=== PATIENT | male | born 1960 | race Caucasian/White ===

== ENCOUNTER → 2022-04-25 12:11 | Outpatient (CLI) | payer BC, SELFPAY ==
--- NOTE | ~2022-04-25 | MR_ITS ---
EXAMINATION: MR brain/brain stem wo/w con DATE: 04/25/2022 13:24 INDICATION: Dizziness. Headache. TECHNIQUE: Magnetic resonance imaging (MRI) of the brain and brainstem was performed without and with 15 mL MultiHance intravenous contrast. COMPARISON: None. FINDINGS: There are scattered areas of nonspecific increased T2-weighted signal intensity in the cere bral white matter, which is within normal limits for the patient's age. There is no intracranial hemo rrhage, acute infarction, or abnormal intracranial mass lesion. The ventricles are normal in size. Th e internal auditory canals and inner and middle ears are normal. There is a trace right mastoid effus ion. There is mild mucosal thickening in the paranasal sinuses. The orbits are normal. IMPRESSION: 1. Normal aging brain. Reviewed, dictated and finalized at location A. IMPRESSION: 1. Normal aging brain.
== END ==
PROVIDERS: PCP Family Medicine; Visit Provider Family Medicine
DX: R42 Dizziness and giddiness (principal); R51.9 Headache, unspecified; R20.2 Paresthesia of skin
CPT/HCPCS: 70553; A9577

== ENCOUNTER 2024-09-09 09:34 | Outpatient (CLI) | payer BC, SELFPAY ==
--- OUTSIDE RECORDS SUMMARY | 2024-09-09 09:51 | XMS_ITS | Clinical Summary ---
Author Organization [facility] Address [address] [place] [address]. [place] [address] [place] [address] Care Team Providers Care Events Associate Name Role Phone Rosalva Singer MD Primary Care Provider Allergies Active Allergy Reactions Criticality Noted Date Comments Sulfa Antibiotics Itching 10/21/2019 Medications No known medications Encounters Date Type Department Care Team Description 09/07/2024 12:30 PM CLAIM TRAINEE Telephone [facility], [address] [address] Rosalva Singer MD Holter Monitor 09/02/2024 Orders Only [facility], [address] [address] Rosalva Singer MD 09/01/2024 Telephone [facility], [address] [address] Cindi Wiley RMA Schedule Test (30d monitor) 08/29/2024 Transcribe Orders [facility] Pre Access Team [address] [place] [address] Rosalva Singer MD from Last 3 Months Immunizations Name Administration Dates Next Due MODERNA COVID-19 (12+) MRNA, LNP-S, PF, 100 MCG/ 0.5 ML DOSE 11/16/2020,10/19/2020 Family History Medical History Relation Comments Cancer Daughter Cancer Father brain Cancer Mother colon Relation Status Comments Daughter Father Mother Social History Tobacco Use Types Packs/Day Years Used Date Smoking Tobacco: Never Smokeless Tobacco: Never Alcohol Use Standard Drinks/Week Comments Never 0 (1 standard drink = 0.6 oz pur e alcohol) Humiliation, Afraid, Rape, and Kick questionnair e Answer Date Recorded Fear of Current or Ex-Partner Patient declined 0 12/15/2019 Emotionally Abused Patient declined 12/15/2019 Physically Abused Patient declined 12/15/2019 Sexually Abused Patient declined 12/15/2019 Social Connection and Isolation Panel [NHANES] A nswer Date Recorded Frequency of Communication with Friends and Fami ly Patient declined 12/15/2019 Frequency of Social Gatherings with Friends and Family Patient declined 12/15/2019 Attends Jew Services Patient declined 02/2020 Active Member of Clubs or Organizations Patient declined 12/15/2019 Attends Club or Organization Meetings Patient de clined 12/15/2019 Marital Status Patient declined 12/15/2019 AUDIT-C Answer Date Recorded Frequency of Alcohol Consumption Never 10/21/2019 Average Number of Drinks Not on file 020 Frequency of Binge Drinking Not on file 10/08 Overall Financial Resource Strain (CARDIA) Answe r Date Recorded Difficulty of Paying Living Expenses Not hard at all 12/15/2019 [facility] [place] of Occupat ional Health - Occupational Stress Questionnaire Answer Date Recorded Feeling of Stress Only a little 12/15/2019 Exercise Vital Sign Answer Date Recorde d Days of Exercise per Week 3 days 2019 Minutes of Exercise per Session 40 min 12/15/2019 Hunger Vital Sign Answer Date Recorded Worried About Running Out of Food in the Last Ye ar Never true 12/15/2019 Ran Out of Food in the Last Year Never true 12/15/2019 PRAPARE - Transportation Answer Date Re corded Lack of Transportation (Medical) No 12/15/2019 Lack of Transportation (Non-Medical) No 12/15/2019 Sex and Gender Information Value Date Recorded Sex Assigned at Not on file Legal Sex Male 7:08 PM CDT Gender Identity Not on file Sexual Orientation Not on file Last Filed Vital Signs Vital Sign Reading Time Taken Comments Blood Pressure 146/89 12/15/2019 11:50 AM CDT Pulse 59 12/15/2019 11:50 AM CDT Temperature 36.8 ??C (98.3 ??F) 12/15/2019 11:32 AM C DT Respiratory Rate 18 12/15/2019 11:50 AM CDT Oxygen Saturation 98% 12/15/2019 11:32 AM CDT Inhaled Oxygen Concentration - - Weight 81.6 kg (180 lb) 12/09/2019 3:48 PM CDT Height 182.9 cm (6') 12/09/2019 3:48 PM CDT Body Mass Index 24.41 12/09/2019 3:48 PM CDT Plan of Treatment Upcoming Encounters Date Type Department Care Team (Late st Contact Info) Description 09/12/2024 8:00 AM CLAIM TRAINEE Appointment [facility] Ultrasound [address] [place], [place] [id number] Rosalva Singer MD [address] [place], [place] [id number] Health Maintenance Due Date Last Done Comments Annual Physical 1963 Hepatitis C 02/15/1980 DTaP, Tdap and Td Vaccines ( 1 - Tdap) 11/02/2007 11/01/2007 COVID-19 Vaccine (3 - 2023-2 5 season) 2024 11/16/2020, 10/19/2020 Influenza Adult (#1) 2024 Colorectal Cancer Screening Colonoscopy (10 Years) 12/14/2029 12/15/2019 RSV Immunization or 60+ Years (1 - 1-dose 75+ series) 2037 Zoster Vaccines Completed 09/29/2019, 07/01/2019 Meningococcal B Vaccine Aged Out No l onger eligible based on patient's age to complete this topic Meningococcal Vaccine Aged Out No silvana asael eligible based on patient's age to complete this topic Pneumococcal Vaccine: Pediatrics (0 to 5 Years) and At-Risk Patients (6 to 64 Years) Aged Out No longer eligible b ased on patient's age to complete this topic RSV Immunizations Under 20 Months Aged Out No longer eligible b ased on patient's age to complete this topic Insurance Care Teams Events Associate Relationship Specialty Start Date End Date Rosalva Singer MD [address] [place] [id number] PCP - General FAMILY PRACTICE 04/08/22
--- OUTSIDE RECORDS SUMMARY | 2024-09-09 09:51 | XMS_ITS | Encounter Summary ---
Author Organization [facility] Address [address] [place] [address]. [place], [place] [address] [place] [address] Care Team Providers Care Lead Handler Name Role Phone Rosalva Singer MD Primary Care Provider Reason for Referral * Imaging (Routine) - Authorized Specialty Diagnoses / Procedures Referred By Contac t Referred To Contact RADIOLOGY Diagnoses Heart murmur Procedures USE ECHOCARDIOGRAM Rosalva Singer MD [address] [place] [address] Phone: tel: fax: Referral ID Status Reason Start Date Expiration Date V isits Requested Visits Authorized [id number] Authorized 08/29/2024 08/29/2025 1 1 E WORKER Encounter Details Date Type Department Care Team (Late st Contact Info) Description 08/29/2024 Transcribe Orders [facility] Pre Access Team [address] [place] [address] Rosalva Singer MD [address] [place] [address] Social History Tobacco Use Types Packs/Day Years [...] Friends and Family Patient declined 12/15/2019 Attends Hinduism Services Patient declined 02/2020 Active Member of [...] Living Expenses Not hard at all 12/15/2019 [facility] [place] of Occupat ional Health - Occupational Stress [...] on file Sexual Orientation Not on file documented as of this encounter Plan of Treatment Upcoming Encounters Date Type Department Care Team (Late st Contact Info) Description 09/12/2024 8:00 AM GROVE WORKER Appointment [facility] Ultrasound [address] [place] [address] Rosalva Singer MD [address] [place] [address] Scheduled Orders Name Type Priority Associated Diagnoses Orde r Schedule USE ECHOCARDIOGRAM ECHO Routine Heart murmur Expected: 08/29/2024, Expires: 08/29/2025 documented as of this encounter Visit Diagnoses Diagnosis Heart murmur- Primary Undiagnosed cardiac murmurs documented in this encounter Care Teams Lead Handler Relationship Specialty Start Date End Date Rosalva Singer MD [address] [place] [address] PCP - General FAMILY PRACTICE 04/08/22 documented as of this encounter
[2024-09-09 11:54] LABS: Prostate Specific Antigen 12.7 ng/mL (< OR = 4.0)
== END 2024-09-09 09:35 | disposition home or self-care (01) ==
PROVIDERS: PCP Family Medicine; Visit Provider Family Medicine
DX: R97.20 Elevated prostate specific antigen [PSA] (principal)
CPT/HCPCS: 36415; 84153

== ENCOUNTER 2024-10-20 00:33 | Day surgery (SDC) | payer BC, SELFPAY ==
[2024-10-17 09:46] VITALS: BMI 24.4
--- NOTE | 2024-10-17 09:52 | PC.NURSE ---
Report to the Outpatient Waiting Room, entrance under the green pavilion located off [facility], at time _1130_ on date _[id number]_. Planned Procedure Time: _130pm_.? Time changes happen often and if your time is changed the preop area will call you the afternoon before. - You and your visitor will be asked to self-screen and do not enter if you have any COVID symptoms. Please call surgeon if you need to reschedule. - A mask is optional within the hospital at this time. Patients may have clear liquids (water, carbonated beverages, clear teas, apple juice) until 3 hours prior to surgery with a maximum of 20 ounces. - No food from midnight until time of surgery and no smoking, or chewing tobacco (or any form of nicotine). No chewing gum, candy or mints. Take only the following medications with a SIP of water on the morning of surgery: ___None____ DO NOT STOP ANY OF YOUR OTHER PRESCRIPTION MEDICATIONS PRIOR TO SURGERY EXCEPT THE FOLLOWING Hold all vitamins and supplements for 3 days per anesthesiologist. Medications to discontinue per physician Date to take last dose Please no make-up, nail djiboutian, hairspray, perfume, deodorant, or body powder the day of surgery.? No jewelry (including any body piercings) or valuables the day of surgery, leave them at home.? Please take a shower or bath the night before, or the morning of, surgery with an antibacterial soap.? Wear comfortable, loose fitting clothing.? - Jewelry must be removed prior to entering the operating room.? Rings and piercings that are not removed may be cut off. - The hospital will not accept responsibility for valuables.? - Please leave all valuables, including medications, at home the day of surgery. If you are going home after surgery, a licensed river driver must drive you home.? - NO public transportation without another adult if you receive anesthesia. - We recommend that an adult stay with you for 24 hours following discharge. - We also recommend that you do not drive, make important decision, drink alcoholic beverages, or take any drugs that were not prescribed by your health care provider for at least 24 hours after your discharge time. Follow any additional instructions given to you from your surgeon. Telephone instructions given to __Gaurav__and asked if any additional questions and then verbalized understanding. Patient advised to call surgeon office or pre surgery nurse liaison [phone] if any additional questions.
--- OUTSIDE RECORDS SUMMARY | 2024-10-20 00:36 | XMS_ITS | Clinical Summary ---
Author Organization [facility] Address [address] [place] [address] Care Team Providers Care Hand Trucker Name Role Phone Rosalva Singer MD Primary Care Provider Allergies Active Allergy Reactions Criticality Noted Date Comments Sulfa Antibiotics Itching 10/21/2019 Medications apixaban (ELIQUIS) 5 MG tablet Take 1 tablet (5 mg total) by mouth 2 (two) times daily. 60 tablet 6 09/28/2024 Active Encounters Date Type Department Care Team Description 10/10/2024 Telephone [facility] [address] [address] Lamont Sandhu MD Schedule Procedure 09/30/2024 Abstract [facility] [address] [address] Ismael Hook MA 09/28/2024 9:00 AM VEHICLE CHECK IN CLERK Office Visit [facility] [address] Lamont Sandhu MD Consult (Palpitations); Atrial Fibrillation 09/28/2024 Travel 09/12/2024 7:57 AM VEHICLE CHECK IN CLERK - 09/12/2024 11:59 PM VEHICLE CHECK IN CLERK Hospital Encounter [facility] Ultrasound [address] [facility] [place] [place] [address] Rosalva Singer MD Discharge Disposition: Home or Self Care (Routine Discharge) 09/12/2024 Travel 09/07/2024 12:30 PM VEHICLE CHECK IN CLERK Telephone [facility] [place] [address] [place] [address] Rosalva Singer MD Holter Monitor 09/02/2024 Orders Only [facility], [facility] [address] [place] [address] Rosalva Singer MD 09/01/2024 Telephone [facility], [place] [address] [place] [address] Cindi Wiley, RMA Schedule Test (30d monitor) 08/29/2024 Transcribe Orders [facility] Pre Access Team [address] [place] [address] Rosalva Singer MD 08/26/2024 Scan [facility], [address] [address] Scanned, Doc Pccl from Last 3 Months Immunizations Name Administration Dates Next Due MODERNA COVID-19 (12+) MRNA, LNP-S, PF, 100 MCG/ 0.5 ML DOSE 11/16/2020,10/19/2020 Family History Medical History Relation Comments Cancer Daughter Cancer Father brain Cancer Mother colon aaa Paternal Grandmother Relation Status Comments Brother 1 Alive Brother 2 Alive Brother 3 Alive Daughter Father Maternal Grandfather Maternal Grandmother Mother Alive Paternal Grandfather Paternal Grandmother Social History Tobacco Use Types Packs/Day Years [...] Friends and Family Patient declined 12/15/2019 Attends Druze Services Patient declined 02/2020 Active Member of [...] Living Expenses Not hard at all 12/15/2019 [facility] [place] of Occupat ional Health - Occupational Stress [...] Information Value Date Recorded Sex Assigned at Male 09/12/2024 7:55 AM VEHICLE CHECK IN CLERK Legal Sex Male 7:08 PM CDT Gender Identity Not on file Sexual Orientation Not on file Last Filed Vital Signs Vital Sign Reading Time Taken Comments Blood Pressure 130/68 09/28/2024 8:44 AM VEHICLE CHECK IN CLERK Pulse 55 09/28/2024 8:44 AM VEHICLE CHECK IN CLERK Temperature 36.8 C (98.3 F) 12/15/2019 11:32 AM CDT Respiratory Rate 18 12/15/2019 11:50 AM CDT Oxygen Saturation 98% 12/15/2019 11:32 AM CDT Inhaled Oxygen Concentration - - Weight 81.6 kg (180 lb) 09/28/2024 8:44 AM VEHICLE CHECK IN CLERK Height 182.9 cm (6') 09/28/2024 8:44 AM VEHICLE CHECK IN CLERK Body Mass Index 24.41 09/28/2024 8:44 AM VEHICLE CHECK IN CLERK Plan of Treatment Upcoming Encounters Date Type Department Care Team (Late st Contact Info) Description 11/17/2024 11:[address] [facility] [place] [address] Lamont Sandhu MD [facility]. [facility] [address] [place], [place] [phone] Asa Gutierrez MD [facility]. [facility] [address] [place], [place] [phone] 03/29/2025 9:00 AM CDT Office Visit [facility] [address] Lamont Sandhu MD [facility]. [facility] [address] [place], [place] [phone] Health Maintenance Due Date Last Done Comments Annual Physical 1963 Pneumococcal Vaccine: Pediatrics (0 to 5 Years) and At-Risk Patients (6 to 64 Years) (1 of 2 - PCV) 02/15/1968 Hepatitis C 02/15/1980 DTaP, Tdap and Td Vaccines ( 1 - Tdap) 11/02/2007 11/01/2007 RSV Immunization or 60+ Years (1 - Risk 60-74 years 1-dose series) 2022 COVID-19 Vaccine (3 - 2023-2 5 season) 2024 11/16/2020, 10/19/2020 Influenza Adult (#1) 2024 Colorectal Cancer Screening Colonoscopy (10 Years) 12/14/2029 12/15/2019 Zoster Vaccines Completed 09/29/2019, 07/01/2019 Meningococcal B Vaccine Aged Out No l onger eligible based on patient's age to complete this topic Meningococcal Vaccine Aged Out No silvana asael eligible based on patient's age to complete this topic RSV Immunizations Under 20 Months Aged Out No longer eligible b ased on patient's age to complete this topic Procedures Procedure Name Priority Date/Time Associated Diagnosis Comments EVENT RECORDER (ECG) UP TO 30 DAYS COMPLETE Routine 10/13/2024 9:52 AM VEHICLE CHECK IN CLERK Palpitations ELECTROCARDIOGRAM (NON MIDMARK ACQUIRED) Routine 09/28/2024 8:41 AM VEHICLE CHECK IN CLERK PAF (paroxysmal atrial fibrillation) ([facility]) USE ECHOCARDIOGRAM Routine 09/12/2024 8: 39 AM VEHICLE CHECK IN CLERK Heart murmur URIC ACID BLOOD Routine 09/01/2024 COMPREHENSIVE METABOLIC PANEL Routine 09/01/2024 LIPID PANEL Routine 09/01/2024 HEMOGLOBIN, GLYCOSYLATED Routine 09/01/2024 ECG GENERIC (SCAN ORDER) Routine 08/26/2024 from Last 3 Months Results * ELECTROCARDIOGRAM (09/28/2024 8:41 AM VEHICLE CHECK IN CLERK) 09/28/2024 8:41 AM VEHICLE CHECK IN CLERK Narrative [facility] - 09/29/2024 2:16 PM VEHICLE CHECK IN CLERK [facility] Test Date: 2024-09-28 Pat Name: GAURAV JOSE Department: 108 Room: Gender: Male Audio Visual Coordinator: : 1960 Requested By: LAMONT SANDHU Order Number: [id number] Reading : Ayaz Vera Measurements Intervals [place] Rate: 55 P: 54 DE: 141 QRS: 72 QRSD: 105 T: 21 QT: 417 QTc: 400 Interpretive Statements SINUS BRADYCARDIA No prior ECG for comparison CLE CHECK IN CLERK Procedure Note Ayaz Vera MD - 09/29/2024 [facility] Test Date: 2024-09-28 Pat Name: GAURAV JOSE Department: 108 Room: Gender: Male Audio Visual Coordinator: : 1960 Requested By: LAMONT SANDHU Order Number: [id number] Reading MD: Ayaz Vera Measurements Intervals [place] Rate: 55 P: 54 DE: 141 QRS: 72 QRSD: 105 T: 21 QT: 417 QTc: 400 Interpretive Statements SINUS BRADYCARDIA No prior ECG for comparison CLE CHECK IN CLERK us Lamont Sandhu MD PROCEDURES-ORDERABLE NO CHARGE F inal Result [id number] * USE ECHOCARDIOGRAM (09/12/2024 8:39 AM VEHICLE CHECK IN CLERK) Anatomical Region Laterality Modality Cardiac Ultrasound 09/12/2024 8:08 AM VEHICLE CHECK IN CLERK Narrative 09/13/2024 6:12 AM VEHICLE CHECK IN CLERK PRETTY KAE Pat.Name: Gaurav Garcia james Pat.ID: [id number] .Date: 09/12/2024 Refer.MD: Kae, [facility] Exam Time: 8:08:00 AM Study Type:OUTREACH Height: 72 in Weight: 180 lb BSA: 2.04 m2 Age: 7 1960,64Y Sex: M Sonogrphr: Pc Pat. Stat.:Outpatient Reason for Study:Heart Murmur Procedures: 2D, M-mode, Doppler, Color Flow, Study performed at [facility], [place], [place] and interpreted by [facility]. ++++++++++++++++++++++++++++++++++++ SUMMARY: ++++++++++++++++++++++++++++++++++++ The left ventricular systolic function is normal. The calculated ejection fraction is 64%. Left ventricular diastolic function is normal. The left atrial volume is mildly increased (34- 41ml/M2). There is moderate prolapse of the posterior mitral valve leaflet(s). Moderate mitral regurgitant jet directed anteriorly and medially. Mild tricuspid regurgitation. ++++++++++++++++++++++++++++++++++++ FINDINGS: ++++++++++++++++++++++++++++++++++++ LV: The left ventricular size is normal. The left ventricular systolic function is normal. The calculated ejection fraction is 64%. There is no left ventricular hypertrophy. Left ventricular diastolic function is normal. RV: The right ventricle size is normal. The right ventricular function is normal. IVS: Intraventricular septum is normal. LA: The left atrial volume is mildly increased (34- 41ml/M2). RA: Right atrial size is mildly enlarged. IAS: Atrial septum appears intact. HOMERO: No evidence of pericardial effusion. AO: Normal aortic root. PA: Estimated right atrial pressure of 3 mmHg. SVn: Inferior vena cava is normal. Inferior vena cava shows >50% collapse with respiration consistent with normal right atrial pressure. AV: The aortic valve is trileaflet. No evidence of aortic valve stenosis. Trace aortic regurgitation. MV: Moderate mitral regurgitant jet directed anteriorly and medially. No evidence of mitral stenosis. There is moderate prolapse of the posterior mitral valve leaflet(s). PV: Structurally normal pulmonic valve. No evidence of pulmonic valve stenosis. A trace of pulmonic regurgitation. TV: Structurally normal tricuspid valve. Mild tricuspid regurgitation. Right ventricular systolic pressure is 31 mmHg. No evidence of tricuspid valve stenosis. <Electronic Signature> 09/13/2024 06:12 AM Fabby Aguilar M.D. Procedure Note Fabby Aguilar MD - 09/13/2024 PRETTY [place].Name: Gaurav Garcia [facility].ID: [id number] .Date: 09/12/2024 Refer.MD: Kae [facility] Exam Time: 8:08:00 AM Study Type:OUTREACH Height: 72 in Weight: 180 lb BSA: 2.04 m2 Age: 7 1960,64Y Sex: M Sonogrphr: Pc Pat. Stat.:Outpatient Reason for Study:Heart Murmur Procedures: 2D, M-mode, Doppler, Color Flow, Study performed at [facility], [place], [place] and interpreted by [facility]. ++++++++++++++++++++++++++++++++++++ SUMMARY: ++++++++++++++++++++++++++++++++++++ The left ventricular systolic function is normal. The calculated ejection fraction is 64%. Left ventricular diastolic function is normal. The left atrial volume is mildly increased (34- 41ml/M2). There is moderate prolapse of the posterior mitral valve leaflet(s). Moderate mitral regurgitant jet directed anteriorly and medially. Mild tricuspid regurgitation. ++++++++++++++++++++++++++++++++++++ FINDINGS: ++++++++++++++++++++++++++++++++++++ LV: The left ventricular size is normal. The left ventricular systolic function is normal. The calculated ejection fraction is 64%. There is no left ventricular hypertrophy. Left ventricular diastolic function is normal. RV: The right ventricle size is normal. The right ventricular function is normal. IVS: Intraventricular septum is normal. LA: The left atrial volume is mildly increased (34- 41ml/M2). RA: Right atrial size is mildly enlarged. IAS: Atrial septum appears intact. HOMERO: No evidence of pericardial effusion. AO: Normal aortic root. PA: Estimated right atrial pressure of 3 mmHg. SVn: Inferior vena cava is normal. Inferior vena cava shows >50% collapse with respiration consistent with normal right atrial pressure. AV: The aortic valve is trileaflet. No evidence of aortic valve stenosis. Trace aortic regurgitation. MV: Moderate mitral regurgitant jet directed anteriorly and medially. No evidence of mitral stenosis. There is moderate prolapse of the posterior mitral valve leaflet(s). PV: Structurally normal pulmonic valve. No evidence of pulmonic valve stenosis. A trace of pulmonic regurgitation. TV: Structurally normal tricuspid valve. Mild tricuspid regurgitation. Right ventricular systolic pressure is 31 mmHg. No evidence of tricuspid valve stenosis. <Electronic Signature> 09/13/2024 06:12 AM Fabby Aguilar M.D. us Rosalva Singer MD ECHO Final Result * HEMOGLOBIN, GLYCOSYLATED (09/01/2024) HGB A1C 5.7 % us Default History Genericprovider LABORATORY Final Result * COMPREHENSIVE METABOLIC PANEL (09/01/2024) SODIUM S/P/B 139 GLUCOSE 117 mg/dL AST 15 BUN 22 CREATININE S/P/B 0.78 0.7 - 1.3 CALCIUM S/P/B 9.2 POTASSIUM S/P/B 4.5 CHLORIDE S/P/B 105 ALT 14 GFR ESTIMATE >90 us Default History Genericprovider LABORATORY Final Result * LIPID PANEL (09/01/2024) CHOLESTEROL 232 TRIGLYCERIDES 94 HDL 58 LDL (CALCULATED) 156 NON HDL CHOLESTEROL 175 us Default History Genericprovider LABORATORY Final Result * URIC ACID BLOOD (09/01/2024) URIC ACID 5.2 09/01/2024 us Default History Genericprovider LABORATORY Final Result * ECG (08/26/2024) us Doc Pccl Scanned SCANNING Final Result [facility] from Last 3 Months Insurance Care Teams Hand Trucker Relationship Specialty Start Date End Date Rosalva Singer MD [address] [place] [phone] PCP - General FAMILY PRACTICE 04/08/22
--- OUTSIDE RECORDS SUMMARY | 2024-10-20 00:36 | XMS_ITS | Encounter Summary ---
Author Organization [facility] Address [address] [place] [id number] Care Team Providers Care Radiology Transcriptionist Name Role Phone Rosalva Singer MD Primary Care Provider Encounter Details Date Type Department Care Team (Late st Contact Info) Description 09/30/2024 Abstract [facility] [address] Ismael Hook MA Social History Tobacco Use Types Packs/Day Years [...] Friends and Family Patient declined 12/15/2019 Attends Orthodox Services Patient declined 02/2020 Active Member of [...] Living Expenses Not hard at all 12/15/2019 [employer] [place] of Occupat ional Health - Occupational Stress [...] Sex Assigned at Male 09/12/2024 7:55 AM SPRING COILER HAND Legal Sex Male 7:08 PM CDT Gender Identity Not on file Sexual Orientation Not on file documented as of this encounter Plan of Treatment Upcoming Encounters Date Type Department Care Team (Late st Contact Info) Description 11/17/2024 11:00 AM CDT Appointment [facility] [place] [address] Gutierrez Sandhu MD [facility]. [place] [address] [place] [address] Asa Gutierrez MD [facility] [place] [place] [address] 03/29/2025 9:00 AM CDT Office Visit [facility] [address] Gutierrez Sandhu MD [facility]. [facility] [address] [place] [address] documented as of this encounter Procedures Procedure Name Priority Date/Time Associated Diagnosis Comments HEMOGLOBIN, GLYCOSYLATED Routine 09/01/2024 COMPREHENSIVE METABOLIC PANEL Routine 09/01/2024 LIPID PANEL Routine 09/01/2024 URIC ACID BLOOD Routine 09/01/2024 documented in this encounter Results * URIC ACID BLOOD (09/01/2024) URIC ACID [...] Default History Genericprovider LABORATORY Final Result * HEMOGLOBIN, GLYCOSYLATED (09/01/2024) HGB A1C 5.7 % us Default History Genericprovider LABORATORY Final Result documented in this encounter Visit Diagnoses Not on filedocumented in this encounter Care Teams Radiology Transcriptionist Relationship Specialty Start Date End Date Rosalva Singer MD [address] [place] [id number] PCP - General FAMILY PRACTICE 04/08/22 documented as of this encounter
--- NOTE | 2024-10-20 06:27 | WPDHPUPDATE1 ---
History and Physical Update Update Date/Time: 10/20/24 06:27 History and Physical has been reviewed, including an updated exam of the patient. There are NO changes in the patient's condition. Risks, benefits, and alternatives have been discussed and questions answered. Patient agrees to proceed with procedure.
[2024-10-20 12:00] VITALS: BP 155/85; PULSE 57; RESP 16; TEMP 36.6; O2SAT 100
--- NOTE | 2024-10-20 12:30 | ECG_ITS ---
Test Date: 2024-10-20 12:48:53 Measurements Intervals [place] Rate: 47 P: 26 HI: 153 QRS: 16 QRSD: 101 T: 13 QT: 445 QTc: 394 Interpretive Statements SINUS BRADYCARDIA No previous ECG available for comparison Electronically Signed On 10-21-2024 16:39:03 CDT by Alfred Wright M.D.
--- NOTE | 2024-10-20 13:36 | WPDANESEPPF ---
Anes - Initial Pre Proc Eval Procedure: Operation Date: 10/20/24 13:30 Proposed Procedures p Trans Rectal Ultrasound Fusion Guided Prostate Biopsy - Keon Dawson MD Date/Time: 10/20/24 13:36 Surgeon: Keon Dawson MD Pre Op Diagnosis: Elev PSA Patient Data Age: 64 Gender: M Height: 1.83 m Weight: 81.6 kg Last Vital Signs Temp 36.6 C 10/20/24 12:00 Pulse 57 L 10/20/24 12:00 Resp 16 10/20/24 12:00 BP 155/85 H 10/20/24 12:00 Pulse Ox 100 10/20/24 12:00 O2 Del Method Room Air 10/20/24 12:00 Allergies Allergy/AdvReac Type Severity Reaction Status Date / Time Sulfa (Sulfonamide Allergy Unknown Unknown Verified 10/20/24 12:33 Antibiotics) Home Medications ?Medication ?Instructions ?Recorded ?Confirmed ?Type No Home Medications 10/17/24 10/17/24 History Patient hx anesthesia problems: none Family hx anesthesia problems: none Results Review: All pre-operative results and documents have been reviewed as part of the pre-operative evaluation. [facility] Social History Social History Smoking status: Never smoker Living arrangements: with family Spiritual care concerns: No Anes - Eval Final PreProcedure Day of Procedure 10/20/24 13:36 Patient weight: normal Heart: bradycardia Lungs: clear to auscultation Airway: Mallampati scale class II Neurological: alert and oriented Last oral intake: >/= 8 hours ASA classification: II Emergent: no Anesthetic plan: proceed Anesthesia type and monitoring: general GIVS and standard monitoring Results Review: All pre-operative results and documents have been reviewed as part of the pre-operative evaluation. Informed Consent: The patient's anesthetic plan and its attendant risks and benefits were discussed with the patient/family/POA. Questions were solicited and answers provided to the satisfaction of the patient/family/POA.
[2024-10-20 14:07] VITALS: BP 107/62; PULSE 57; RESP 14; O2SAT 98
[2024-10-20] MEDS: LACTATED RINGERS 1,000 ML 30 ML IV CONT (14:07)
--- NOTE | 2024-10-20 14:32 | P.OP_ITS ---
Procedure Note - Detailed Date of Procedure 10/20/24 Pre-op Diagnosis Elev PSA Post-op Diagnosis Same Procedure Performed UroNav fusion biopsy Surgeon Keon Dawson MD Anesthesia General Description of Procedure Patient is brought to the operative suite where he is positioned in the left lateral position. Systemic sedation is administered per the anesthesia department. Surgical time-out is undertaken and it's verified the patient has received preoperative antibiotics. Transrectal ultrasonography is undertaken with a standard transrectal probe. The [employer] system is used to superimpose his previously obtained mpMRI prostate images on the real-time transrectal ultrasond images. Prostate volume is calculated at 28cc. On the previous mpMRI there are two regions of interest. Using the transrectal needle design for prostate biopsies 3 cores from each region of interest her obtain. We then proceeded with a standard 12 core prostate biopsy. Transrectal probe was removed and patient taken to recovery room having tolerated the procedure well. Blood loss was less than 10 cc. Pathology Yes
[2024-10-20 14:35] VITALS: BP 115/67; PULSE 50
== END 2024-10-20 15:10 | disposition home or self-care (01) ==
PROVIDERS: PCP Family Medicine; Visit Provider Urology
PROC: (CPT 55700; principal; 2024-10-20 13:30)
DX: C61 Malignant neoplasm of prostate (principal); R97.20 Elevated prostate specific antigen [PSA]; I48.91 Unspecified atrial fibrillation; Z82.49 Family history of ischemic heart disease and other diseases of the circulatory system
CPT/HCPCS: 76872; 55700; 93005; G0416; J0690; J0696; J2250; J2270; J2704; J7120

== ENCOUNTER 2024-11-04 13:22 | Outpatient (CLI) | payer BC, SELFPAY ==
--- NOTE | ~2024-11-04 | PE_ITS ---
EXAMINATION: PET_PETPSMAST_PT DATE: 11/04/2024 15:30 INDICATION: Prostate cancer. TECHNIQUE: 6.154 mCi of Ga-68 gozetotide was administered intravenously. Low dose computed tomography (CT) images were acquired from the base of the brain to the proximal thighs for attenuation correcti on and anatomic localization. Automated exposure control was employed. Dose-length product (DLP) was 1077 mGy-cm. Positron emission tomography (PET) images were acquired in the same distribution. COMPARISON: None FINDINGS: Head/neck: There are no pathologically enlarged lymph nodes. Chest: The lungs demonstrate mild atelectasis. No pleural effusion. Calcified right hilar and mediast inal lymph nodes are consistent with old edematous disease. The heart size is normal. No pericardial effusion. There is mild bilateral gynecomastia. Abdomen/pelvis/proximal thighs: There are cysts in the liver measuring up to 12 mm. The gallbladder, spleen, pancreas, adrenal glands, and right kidney are normal. There are cysts in left kidney measuri ng up to 4.6 cm. The prostate is mildly enlarged. There is increased activity in the prostate on the right with maximum SUV of 16.0. There is diverticulosis of the colon without evidence of diverticulit is. There are no dilated loops of bowel. The appendix is normal. There are no pathologically enlarged lymph nodes. There is no free intraperitoneal fluid. There is no osseous malignancy. IMPRESSION: 1. Mildly enlarged prostate with increased activity on the right, consistent with primary malignancy. No evidence of metastatic disease. Reviewed, dictated and finalized at location A. IMPRESSION: 1. Mildly enlarged prostate with increased activity on the right, consistent wi th primary malignancy. No evidence of metastatic disease.
--- OUTSIDE RECORDS SUMMARY | 2024-11-04 13:34 | XMS_ITS ---
Author Organization [facility] Address [address] [place] [phone] Care Team Providers Care Management Trainer Name Role Phone Rosalva Singer Primary Care Provider [phone] Reason For Referral Reason PSA went from 3.3 in 2021 to now 15. Planning repeat draw at [facility] this week. pt saw Dr. Kelley years ago for hematuria. New level 09/09/24: 12.7 Patient has an apt with Dr. Dawson on 10/03/24 Diagnosis 1 Elevated PSA (R97.20 ) Referral Organization [facility] Referring Provider First Name Rosalva Referring Provider Last Name Lucrecia Referring Provider Speciality Family [facility] icine Referred Provider Nam August Referred Provider Specialty Urology General Notes Albina Cruz 0 09/13/2024 09:01:14 AM CO CHAIRMAN >Faxed referral to Dr. August Referral Priority Urgent REASON FOR VISIT Elevated PSA Encounters Encounter Location Date Provider Diagnosis [address] [address] 09/05/2024 Rosalva Singer Elevated PSA R97.20 Assessments Encounter Date Diagnosis (ICD Code) Assessment Notes Treatment Notes Treatment Clinical Notes 09/05/2024 Elevated PSA (ICD-10 - R97.20) Plan Of Treatment Pending Test Test Name Order Date PSA, total 09/05/2024 Referrals Referral Date Details 09/05/2024 09/05/2024, PSA went from 3.3 in 2021 to now 15. Planning repeat draw at [facility] this week. pt saw Dr. Kelley years ago for hematuria. New level 09/09/24: 12.7 Patient has an apt with Dr. Dawson on 10/03/24, Nam August Consultation Request Notes Referral Date Referring Provider Referred Provider Not es 09/05/2024 Rosalva Singer Demetrios PSA w ent from 3.3 in 2021 to now 15. Planning repeat draw at [facility] this week. pt saw Dr. Kelley years ago for hematuria. New level 09/09/24: 12.7 Patient has an apt with Dr. Dawson on 10/03/24 Progress Notes * Chilo COBURNGwenOB:1960 (64 yo M)Acc No.[id number]:09/05/2024 Patient: Gaurav KEENE :1960 A ge:64 Y S ex:Male Phone: Address:[address] [place] [address], [phone] Subjective: * Chief Complaints: * E levated PSA * Medical History: * Surgical History: * Hospitalization/Major Diagno stic Procedure: * Medications: Objective: * Physical Examination: Assessment: * Assessment: 1. E levated PSA - R97.20 (Primary) Plan: * Treatment: * Procedure Codes: Billing Information: * Visit Code: * Procedure Codes: * true * Date: Generated for Vanna frye/Alva/eTransmitting on: 0 11/04/2024 01:34 PM CDT
--- OUTSIDE RECORDS SUMMARY | 2024-11-04 13:35 | XMS_ITS ---
Author Organization [facility] Address [address] [place] [address] Care Team Providers Care Pinion And Wheel Truer Name Role Phone Rosalva Singer Primary Care Provider [phone] REASON FOR VISIT walk-in discussion on test results Encounters Encounter Location Date Provider Diagnosis [facility] [address] [place] [address] 10/28/2024 Rosalva Singer Assessments Encounter Date Diagnosis (ICD Code) Assessment Notes Treatment Notes Treatment Clinical Notes 10/28/2024 Other Pt came in to ask a few questions. Chief complaint Discussion of atrial fibrillation management and upcoming prostate biopsy. History of present illness - Had atrial fibrillation (A-fib) with episodes of super ventricular ectopic beats and tachycardia events. - Longest A-fib episode lasted 30 minutes on September 13, with a heart rate of 142 beats per minute on September 15, lasting 12 minutes. - Experienced symptoms of lightheadedness and feeling of irregular heartbeat. - Previous biopsy conducted, with a [place] score of 9 in one region, indicating aggressive prostate cancer. - Concerns about potential rectal involvement from prostate cancer based on MRI results. - Underwent a Holter monitor test, which recorded 3 hours and 41 minutes of total A-fib time. - History of palpitations noted in August and early September. Assessment & Plan Atrial Fibrillation (A-fib) - A-fib confirmed with episodes of tachycardia and irregular heart rhythm. Longest episode lasted 30 minutes on September 13, 2024. Risk of stroke discussed, but patient is not at high enough risk to necessitate Eliquis immediately. Potential valvular cause of A-fib considered. - Delay starting Eliquis until further cardiac evaluation, including a transesophageal echocardiogram (KRISSY) to assess valve structure. Inform manager quality systems about decision to delay Eliquis. - Risks and side effects: Discussed risk of stroke without Eliquis and risk of major bleeding with Eliquis Prostate Cancer - Aggressive prostate cancer with a [place] score of 9 in one region, indicating a high risk of metastasis. PET scan scheduled to assess potential spread. - Await PET scan results to determine treatment plan. Consideration of surgical removal of the prostate, possibly followed by hormone deprivation therapy. Discussed potential for robotic-assisted surgery for better outcomes. - Risks and side effects: Discussed potential side effects of hormone deprivation therapy, including night sweats and muscle mass reduction. Discussed potential post-surgical side effects, including urinary incontinence and erectile dysfunction. Appointments - Consultation on November 16, 2024 with Urology to discuss the plan and next steps. - Transesophageal echocardiogram (KRISSY) scheduled for November 17, 2024. - PET scan scheduled for next Thursday (November 04, 2024). Plan Of Treatment Treatment Notes Assessment Notes Other Pt came in to ask a few questions. Chief complaint Discussion of atrial fibrillation management and upcoming prostate biopsy. History of present illness - Had atrial fibrillation (A-fib) with episodes of super ventricular ectopic beats and tachycardia events. - Longest A-fib episode lasted 30 minutes on September 13, with a heart rate of 142 beats per minute on September 15, lasting 12 minutes. - Experienced symptoms of lightheadedness and feeling of irregular heartbeat. - Previous biopsy conducted, with a [place] score of 9 in one region, indicating aggressive prostate cancer. - Concerns about potential rectal involvement from prostate cancer based on MRI results. - Underwent a Holter monitor test, which recorded 3 hours and 41 minutes of total A-fib time. - History of palpitations noted in August and early September. Assessment & Plan Atrial Fibrillation (A-fib) - A-fib confirmed with episodes of tachycardia and irregular heart rhythm. Longest episode lasted 30 minutes on September 13, 2024. Risk of stroke discussed, but patient is not at high enough risk to necessitate Eliquis immediately. Potential valvular cause of A-fib considered. - Delay starting Eliquis until further cardiac evaluation, including a transesophageal echocardiogram (KRISSY) to assess valve structure. Inform manager quality systems about decision to delay Eliquis. - Risks and side effects: Discussed risk of stroke without Eliquis and risk of major bleeding with Eliquis Prostate Cancer - Aggressive prostate cancer with a [place] score of 9 in one region, indicating a high risk of metastasis. PET scan scheduled to assess potential spread. - Await PET scan results to determine treatment plan. Consideration of surgical removal of the prostate, possibly followed by hormone deprivation therapy. Discussed potential for robotic-assisted surgery for better outcomes. - Risks and side effects: Discussed potential side effects of hormone deprivation therapy, including night sweats and muscle mass reduction. Discussed potential post-surgical side effects, including urinary incontinence and erectile dysfunction. Appointments - Consultation on November 16, 2024 with Urology to discuss the plan and next steps. - Transesophageal echocardiogram (KRISSY) scheduled for November 17, 2024. - PET scan scheduled for next Thursday (November 04, 2024). Progress Notes * Julieta COBURNOB:1960 (64 yo M)Acc No.[id number]:10/28/2024 Patient: Gaurav KEENE :1960 A ge:64 Y S ex:Male Phone: Address:[address] [place] [address], [place], [address] Subjective: * Chief Complaints: * W alk-in discussion on test results * Medical History: * Surgical History: * Hospitalization/Major Diagno stic Procedure: * Medications: Objective: * Physical Examination: Plan: * Treatment: * Procedure Codes: Billing Information: * Visit Code: * Procedure Codes: * true * Date: Generated for Vanna frye/Alva/Melodysmitting on: 0 11/04/2024 01:34 PM CDT
--- OUTSIDE RECORDS SUMMARY | 2024-11-04 13:35 | XMS_ITS | Clinical Summary ---
Author Organization [facility] Address [address] [place] [address] Care Team Providers Care Fabrication Supervisor Name Role Phone Rosalva Bai MD Primary Care Provider Allergies Active Allergy Reactions Criticality Noted Date Comments Sulfa Antibiotics Itching 10/21/2019 Medications apixaban (ELIQUIS) 5 MG tablet Take 1 tablet (5 mg total) by mouth 2 (two) times daily. 60 tablet 6 09/28/2024 Active Encounters Date Type Department Care Team Description 10/10/2024 Telephone [facility] [address] [address] Lamont Sandhu MD Schedule Procedure 09/30/2024 Abstract [facility] [address] [address] Ismael Hook MA 09/28/2024 9:00 AM LIFTER DRIVER Office Visit [facility] [address] Lamont Sandhu MD Consult (Palpitations); Atrial Fibrillation 09/28/2024 Travel 09/12/2024 7:57 AM LIFTER DRIVER - 09/12/2024 11:59 PM LIFTER DRIVER Hospital Encounter [facility] Ultrasound [address] [place] [address] Rosalva Bai MD Discharge Disposition: Home or Self Care (Routine Discharge) 09/12/2024 Travel 09/07/2024 12:30 PM LIFTER DRIVER Telephone [facility], [place] [address] [place] [address] Rosalva Bai MD Holter Monitor 09/02/2024 Orders Only [facility], [facility] [address] [place] [address] Rosalva Bai MD 09/01/2024 Telephone [facility], [place] [address] [place] [address] Cindi Wiley, RMA Schedule Test (30d monitor) 08/29/2024 Transcribe Orders [facility] Pre Access Team [address] [place] [address] Rosalva Bai MD 08/26/2024 Scan [facility], [address] [address] Scanned, Doc Pccl from Last 3 Months [...] Friends and Family Patient declined 12/15/2019 Attends [employer] Services Patient declined 02/2020 Active Member of [...] Living Expenses Not hard at all 12/15/2019 [facility] [place] of Occupat ional Health - Occupational Stress [...] Sex Assigned at Male 09/12/2024 7:55 AM LIFTER DRIVER Legal Sex Male 7:08 PM CDT Gender Identity Not on file Sexual Orientation Not on file Last Filed Vital Signs Vital Sign Reading Time Taken Comments Blood Pressure 130/68 09/28/2024 8:44 AM LIFTER DRIVER Pulse 55 09/28/2024 8:44 AM LIFTER DRIVER Temperature 36.8 C (98.3 F) 12/15/2019 11:32 AM CDT Respiratory Rate 18 12/15/2019 11:50 AM CDT Oxygen Saturation 98% 12/15/2019 11:32 AM CDT Inhaled Oxygen Concentration - - Weight 81.6 kg (180 lb) 09/28/2024 8:44 AM LIFTER DRIVER Height 182.9 cm (6') 09/28/2024 8:44 AM LIFTER DRIVER Body Mass Index 24.41 09/28/2024 8:44 AM LIFTER DRIVER Plan of Treatment Upcoming Encounters Date Type Department Care Team (Late st Contact Info) Description 11/17/2024 11:[address] [facility] [place] [address] Lamont Sandhu MD [facility]. [facility] [address] [place], [place] [phone] Asa Gutierrez MD [facility]. [facility] [address] [place], [place] [phone] 03/29/2025 9:00 AM CDT Office Visit [facility] [address] Lamont Sandhu MD [facility]. [facility] [address] [place], [place] [phone] Health Maintenance Due Date Last Done Comments [...] 30 DAYS COMPLETE Routine 10/13/2024 9:52 AM LIFTER DRIVER Palpitations ELECTROCARDIOGRAM (NON MIDMARK ACQUIRED) Routine 09/28/2024 8:41 AM LIFTER DRIVER PAF (paroxysmal atrial fibrillation) ([facility]) USE ECHOCARDIOGRAM Routine 09/12/2024 8: 39 AM LIFTER DRIVER Heart murmur URIC ACID BLOOD Routine 09/01/2024 COMPREHENSIVE METABOLIC PANEL Routine 09/01/2024 LIPID PANEL Routine 09/01/2024 HEMOGLOBIN, GLYCOSYLATED Routine 09/01/2024 ECG GENERIC (SCAN ORDER) Routine 08/26/2024 from Last 3 Months Results * CLINIC - OUTPATIENT EVENT RECORDER (ECG) UP TO 30 DAYS COMPLETE (Holter) (10/13/2024 9:52 AM LIFTER DRIVER) [facility] CARDIOVASCULAR - 10/13/2024 9:52 AM LIFTER DRIVER [address] [place] [address] GRIDDLE ATTENDANT REPORT PATIENT NAME: Gaurav Coburn : 1960 PCP: ROSALVA BAI MD INTERPRETING DIRECTOR DATA ANALYTICS: Lamont Sandhu MD INDICATION: Palpitations. Baseline Rhythm * The baseline rhythm was Sinus Bradycardia with heart rates ranged between 38 and 154 beats per minute, with average rate of 57 beats per minute. A-V Conduction * No Second Degree AV Block Type II. * No Third Degree AV Block. * No Pauses. Supraventricular Arrhythmia * There were 16,594 Supraventricular Ectopic beats with a burden of <1%. * 5 Supraventricular Tachycardia events - the longest episode was 9.0s on 09/22 02:53, and the fastest episode was 162 BPM on 10/01 10:47. Ventricular Arrhythmia * There were 411 Ventricular Ectopic beats with a burden of <1%. * No Ventricular Tachycardia. Atrial Fibrillation * Atrial Fibrillation - the longest episode was 30m 16.4s on 09/13 03:34, the fastest episode was 142 BPM on 09/15 12:52, and the slowest episode was 90 BPM on 09/12 01:18. Patient Triggered Events * 7 patient triggered events, no symptoms were specified. SUMMARY: 3h 41 minutes of AF noted on monitor. Consider beta blockers, apixaban after any planned procedures. us Rosalva Bai MD CV VASCULAR ORDERABLES Final Result Performing Organization Address City/[facility]/ZIP Co de Phone Number [facility] * ELECTROCARDIOGRAM (09/28/2024 8:41 AM LIFTER DRIVER) 09/28/2024 8:41 AM LIFTER DRIVER Narrative [facility] - 09/29/2024 2:16 PM LIFTER DRIVER [facility] Date: 2024-09[facility]28 Pat Name: GAURAV COBURN Department: 108 Room: Gender: Male Maintenance And Operations Supervisor: : 1960 Requested By: LAMONT SANDHU Order Number: [id number] Reading MD: Ayaz Vera Measurements Intervals [place] Rate: 55 P: 54 HI: 141 QRS: 72 QRSD: 105 T: 21 QT: 417 QTc: 400 Interpretive Statements SINUS BRADYCARDIA No prior ECG for comparison ER DRIVER Procedure Note Ayaz Vera MD - 09/29/2024 [facility] Test Date: 2024-09-28 Pat Name: GAURAV [facility] Department: 108 Room: Gender: Male Maintenance And Operations Supervisor: : 1960 Requested By: LAMONT SANDHU Order Number: [id number] Annette MANNING: Ayaz Vera Measurements Intervals [place] Rate: 55 P: 54 HI: 141 QRS: 72 QRSD: 105 T: 21 QT: 417 QTc: 400 Interpretive Statements SINUS BRADYCARDIA No prior ECG for comparison ER DRIVER us Lamont Sandhu MD PROCEDURES-ORDERABLE NO CHARGE F inal Result Performing Organization Address City/[facility]/ZIP Co de Phone Number [facility] * USE ECHOCARDIOGRAM (09/12/2024 8:39 AM LIFTER DRIVER) Anatomical Region Laterality Modality Cardiac Ultrasound 09/12/2024 8:08 AM LIFTER DRIVER Narrative 09/13/2024 6:12 AM LIFTER DRIVER PRETTY PAL Pat.Name: Gaurav Coburn Pat.ID: [id number] .Date: 09/12/2024 Refer.MD: Kae, [facility] Exam Time: 8:08:00 AM Study Type:OUTREACH Height: 72 in Weight: 180 lb BSA: 2.04 m2 Age: 9 1960,64Y Sex: M Sonogrphr: Pc Pat. Stat.:Outpatient Reason for Study:Heart Murmur Procedures: 2D, M-mode, Doppler, Color Flow, Study performed at [facility], [place], [place] and interpreted by [facility]. [...] Note Fabby Aguilar MD - 09/13/2024 PRETTY PAL Pat.Name: Gaurav Coburn Pat.ID: [id number] .Date: 09/12/2024 Refer.MD: Kae, [facility] Exam Time: 8:08:00 AM Study Type:KAE Height: 72 in Weight: 180 lb BSA: 2.04 m2 Age: 9 1960,64Y Sex: M Sonogrphr: Pc Pat. Stat.:Outpatient Reason for Study:Heart Murmur Procedures: 2D, M-mode, Doppler, Color Flow, Study performed at [place], [place] and interpreted by [facility]. ++++++++++++++++++++++++++++++++++++ SUMMARY: ++++++++++++++++++++++++++++++++++++ The left [...] 06:12 AM Fabby Aguilar M.D. us Rosalva Bai MD ECHO Final Result * HEMOGLOBIN, GLYCOSYLATED (09/01/2024) Pathologist [facility] HGB A1C 5.7 % us Default History Genericprovider LABORATORY Final Result * COMPREHENSIVE METABOLIC PANEL (09/01/2024) Pathologist [facility] SODIUM S/P/B 139 GLUCOSE 117 mg/dL AST [...] us Doc Pccl Scanned SCANNING Final Result [facility] Mon[facility] Insurance Care Teams Fabrication Supervisor Relationship Specialty Start Date End Date Rosalva Bai MD [address] [place] [address] PCP - General FAMILY PRACTICE 04/08/22
--- OUTSIDE RECORDS SUMMARY | 2024-11-04 13:35 | XMS_ITS | Encounter Summary ---
Author Organization [facility] Address [address] [place] [id number] Care Team Providers Care Visual C Developer Name Role Phone Rosalva Singer MD Primary Care Provider Encounter Details Date Type Department Care Team (Late st Contact Info) Description 09/30/2024 Abstract [facility] [address] Ismael Hook MA Social History Tobacco Use [...] Friends and Family Patient declined 12/15/2019 Attends [employer] Patient declined 02/2020 Active Member of [...] Living Expenses Not hard at all 12/15/2019 [employer] [place] [employer] [facility] - Occupational Stress [...] Sex Assigned at Male 09/12/2024 7:55 AM DIESEL ENGINE PIPE FITTER Legal Sex Male 7:08 PM CDT Gender Identity Not on file Sexual Orientation Not on file documented as of this encounter Plan of Treatment Upcoming Encounters Date Type Department Care Team (Late st Contact Info) Description 11/17/2024 11:[address] [facility] International Marketing Coordinator [facility] [place] [address] Gutierrez Sandhu MD [facility]. [address] [place] [address] Asa Gutierrez MD [facility]. [address] [place] [address] 03/29/2025 9:00 AM CDT Office Visit [facility] [address] Gutierrez Sandhu MD [facility]. [facility] [address] [place] [address] documented as of this encounter Procedures Procedure [...] on filedocumented in this encounter Care Teams Visual C Developer Relationship Specialty Start Date End Date Rosalva Singer MD [address] [place] [id number] PCP - General FAMILY PRACTICE 04/08/22 documented as of this encounter
--- OUTSIDE RECORDS SUMMARY | 2024-11-04 13:35 | XMS_ITS | Patient Health Record ---
Author Organization [facility] dicine Address [address] [place] [address] Care Team Providers Care Access Services Librarian Name Role Phone Rosalva Singer Primary Care Provider [phone] Migration, Provider Unavailable Unavailable Allergies No Known Allergies Results Component Value Reference Range Notes Echocardiogram Reviewed date:09/20/2024 05:04:48 PM Interpretation: Performing Lab: Notes/Report: 30 day Event Monitor Reviewed date:11/03/2024 01:12:46 PM Interpretation: Performing Lab: Notes/Report: Reason For Referral Reason PSA went from 3.3 in 2021 to now 15. Planning repeat draw at [facility] this week. pt saw Dr. Kelley years ago for hematuria. New level 09/09/24: 12.7 Patient has an apt with Dr. Dawson on 10/03/24 Diagnosis 1 Elevated PSA (R97.20 ) Referral Organization [facility] Referring Provider First Name Rosalva Referring Provider Last Name [place] Referring Provider Speciality Family Med icifartun Referred Provider Nam August Referred Provider Specialty Urology General Notes Albina Cruz 0 09/13/2024 09:01:14 AM RESEARCH COMPUTING SPECIALIST >Faxed referral to Dr. August Referral Priority Urgent Reason A. Fib/A. Flutter Diagnosis 1 Palpitations (R00.2) Diagnosis 2 Atrial fibrillation, unspecified type (I48.91) Referral Organization [facility] Referring Provider First Name Rosalva Referring Provider Last Name [place] [facility]erred Provider Specialty Cardiology General Notes Elida Hassan 09/12 03:11:14 PM RESEARCH COMPUTING SPECIALIST >Needs an EP consult to [facility]. Already has a cardiology referral started., Albina Cruz 09/13/2024 10:51:19 AM RESEARCH COMPUTING SPECIALIST >Faxed referral to [facility] [phone], Mary Resendiz 09/21/2024 11:27:37 AM RESEARCH COMPUTING SPECIALIST >nothing noted in EPIC yet for EP. Can you check on this when able please?, Albina Cruz 10/05/2024 02:43:42 PM RESEARCH COMPUTING SPECIALIST >LVM with office requesting status of referral Referral Priority Urgent Medications Medication SIG (Take, Route, Fr equency, Duration) Notes Start Date End Date Status traMADol HCl 50 MG 1 Oral Q6H; Duration: 0 021 Active dexAMETHasone 2 MG Oral; Duration: 0 11/12/2022 Active Ondansetron 4 MG 1 Oral Q6H; Duration: 0 Active Immunizations Vaccine Route Administration Date Status Comme nts Tdap IM Intramuscular 03/07/2022 Administered ,sourcename : New immunization record ,immstatus : Complete Source VFC Code: : Influenza, quadrivalent (IIV4), split virus, 6-35 months dosage IM Intramuscular 07/25/2022 Administered ,sourcename : New immunization record ,immstatus : Complete Source VFC Code: : Vital Signs Heart Rate 53 /min 08/26/2024 left arm 132/64 , right arm 122/60 Temperature 97.0 degrees Fahrenheit 08/26/2024 left arm 132/64, right arm 122/60 Respiratory Rate 20 /min 08/26/2024 left arm 13 2/64, right arm 122/60 Blood pressure diastolic 80 mm Hg 08/26/2024 lef t arm 132/64, right arm 122/60 Oximetry 97 % 08/26/2024 left arm 132/64 , right arm 122/60 Height-cm 185.42 cm 08/26/2024 left arm 132/64 , right arm 122/60 Weight-kg 85.64 kg 08/26/2024 left arm 132/64 , right arm 122/60 Height 73.00 in 08/26/2024 left arm 132/64 , right arm 122/60 Blood pressure systolic 122 mm Hg 08/26/2024 left arm 132/64, right arm 122/60 Weight 188.8 lbs 08/26/2024 left arm 132/64 , right arm 122/60 BMI 24.91 kg/m2 08/26/2024 left arm 132/64 , right arm 122/60 Procedures Procedure Date Ordered Date Performed Result Body Sit e ELECTROCARDIOGRAM, COMPLETE 08/26/2024 08/26/2024 Normal Encounters Encounter Location Date Provider Diagnosis [address] [address] 08/26/2024 [facility] Elevated blood pressure reading without diagnosis of hypertension R03.0 ; Palpitations R00.2 and Heart murmur R01.[address] [address] 07/09/2024 Provider Migration [address] [address] 07/10/2024 Provider Migration [address] [address] 09/05/2024 [facility] Elevated PSA R97.[address] [address] 10/28/2024 [facility] Assessments Encounter Date Diagnosis (ICD Code) Assessment Notes Treatment Notes Treatment Clinical Notes 08/26/2024 Palpitations (ICD-10 - R00.2) 08/26/2024 Elevated blood pressure reading without diagnosis of hypertension (ICD-10 - R03.0) 09/05/2024 Elevated PSA (ICD-10 - R97.20) 08/26/2024 Heart murmur (ICD-10 - R01.1) 08/26/2024 Other Assessment & Plan Elevated Blood Pressure without Hypertension - Blood pressure readings are elevated but not consistent with hypertension. Possible situational factors contributing to elevated readings. - Recheck blood pressure on bare arms. Consider purchasing an automatic blood pressure cuff for home monitoring. Monitor blood pressure at home, especially in the morning and after work. - Discussed the importance of accurate blood pressure measurement: sit with feet flat on the floor for 10 minutes, bare arm at heart height, and then check the pressure. Palpitations - Likely related to mitral valve prolapse or mitral regurgitation. No evidence of underlying heart block or previous heart attack. EKG is normal. - Heart rate is borderline low (in the 50s), but EKG looks normal and is reassuring. 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 - Order an echocardiogram to assess heart structure and valves. Order a 30-day heart monitor to capture any irregularities, especially during sleep. - Discussed the potential need for an event monitor or a 24-hour Holter monitor to capture heart activity, especially during sleep. - Need for blood work to check electrolytes, magnesium, and other factors that could affect heart rhythm. He will RTC for [facility] results. Heart Murmur - Likely mitral valve prolapse or mitral regurgitation. Murmur detected on examination. - Confirm diagnosis with an echocardiogram. Appointments - Echo appointment to be scheduled at a hospital with a second grade teacher on staff. - 30-day heart monitor to be mailed to the patient. 10/28/2024 Other Pt came in to ask [...] heartbeat. - Previous biopsy conducted, with a [place] score of 9 in one region, indicating [...] echocardiogram (KRISSY) to assess valve structure. Inform second grade teacher about decision to delay Eliquis. - Risks [...] Thursday (November 04, 2024). Plan Of Treatment Pending Test Test Name Order Date PSA, total 09/05/2024 Insurance Providers Payer Name Payer Address Payer Phone Subscriber Number Group Number Insured Name Patient Relationship to Insured Coverage Start Date Coverage End Date [employer] [address] [place] [address] [id number] Gaurav Garcia Self - patient is the insured 4
== END 2024-11-04 13:23 | disposition home or self-care (01) ==
PROVIDERS: PCP Family Medicine; Visit Provider Urology
DX: C61 Malignant neoplasm of prostate (principal)
CPT/HCPCS: 78815; A9596